=== PATIENT | male | born 1995 | race American Indian/Alaskan Native ===

== ENCOUNTER 2017-03-24 07:40 | Emergency (ER) | payer BC ==
[2017-03-24 07:48] VITALS: BMI 23.0
[2017-03-24] MEDS ORDERED: FAMOTIDINE 20 MG/50 ML IVPB 20 MG/50 ML MG IVPB ONE (08:03)
[2017-03-24] MEDS ORDERED: ONDANSETRON 4 MG/2 ML VIAL IVPUSH ONE (08:03)
[2017-03-24] MEDS ORDERED: SODIUM CHLORIDE 1,000 ML IV STA (08:03)
--- NOTE | 2017-03-24 08:03 | PDOC ---
History of Present Illness - General Chief Complaint: Pain Stated Complaint: STOMACH PAIN/VOMITING Time Seen by Provider: 03/24/17 07:53 - History of Present Illness Initial Comments: 03/24/17 08:16 The patient is a 21 year old male with no significant PMH who presents for evaluation of nausea, vomiting, and abdominal pain. The patient reports that he is visiting from [place] and began experiencing LUQ abdominal pain with associated nausea and vomiting beginning yesterday evening after arriving. He reports multiple episodes of non-bloody, non-bilious vomiting throughout the night prompting his presentation to the ED today. He denies having symptoms similar to this in the past. He denies fevers, chills, SOB, chest pain, or changes with urination or bowel movements. Past History - Past Medical History Allergies/Adverse Reactions: Allergies Allergy/AdvReac Type Severity Reaction Status Date / Time No Known Allergies Allergy Verified 03/24/17 07:47 Home Medications: Ambulatory Orders Ondansetron [Zofran Odt -] 4 mg SL TID PRN #21 od.tablet 03/24/17 COPD: No Other medical history: lactose intolerant - Suicide/Smoking/Psychosocial Hx Smoking History: Never smoked Information on smoking cessation initiated: No Hx Alcohol Use: No Drug/Substance Use Hx: No Substance Use Type: None Review of Systems - Review of Systems Comments:: 03/24/17 08:19 Constitutional: No fevers, chills, fatigue, malaise HEENT: No Rhinorrhea, nasal congestion, Cardiovascular: No chest pain, syncope, palpitations, lightheadedness Respiratory: No Cough, SOB, Hemoptysis, Gastrointestinal: Abdominal pain, nausea, vomiting. No Constipation, Diarrhea, Melena Genitourinary: No Dysuria, Frequency, Urgency, Hesitancy, Hematuria, Flank pain Musculoskeletal: No Myalgia, arthralgia Skin: No rashes, bruising, pallor Neurologic: No Headache, Dizziness, Numbness, Weakness, or Tingling Psychiatric: No Hallucinations. No SI or HI *Physical Exam - Vital Signs Last Vital Signs Temp Pulse Resp BP Pulse Ox 97.8 F 62 19 133/88 100 03/24/17 07:45 03/24/17 07:45 03/24/17 07:45 03/24/17 07:45 03/24/17 07:45 - Physical Exam Comments: 03/24/17 08:20 General Appearance: Nourished. No Apparent Distress HEENT: EOMI, [place]. No Pharyngeal Erythema, Tonsillar Exudate, Tonsillar Erythema Neck: No Cervical Lymphadenopathy Respiratory/Chest: Lungs Clear, Normal Breath Sounds. No Crackles, Rales, Rhonchi, Wheezing Cardiovascular: Regular Rhythm, Regular Rate. No Murmur, Gallops, Rubs Gastrointestinal/Abdominal: Normal Bowel Sounds, Soft. Mild LUQ tenderness to palpation. No RLQ tenderness to palpation. No Guarding, Rebound, Musculoskeletal: No CVA Tenderness Extremity: Normal Capillary Refill Integumentary: Normal Color, Dry, Warm Neurologic: Fully Oriented, Alert, Normal Mood/Affect, Normal Response, ED Treatment Course - LABORATORY CBC & Chemistry Diagram: 03/24/17 08:30 03/24/17 08:30 Medical Decision Making - Medical Decision Making 03/24/17 08:20 The patient is a 21 year old male with no significant PMH who presents for evaluation of nausea, vomiting, and abdominal pain. Differential includes but is not limited to: Gastritis, pancreatitis, appendicitis, infectious, metabolic derangement. Given the patient's physical exam of LUQ abdominal pain with associated nausea and vomiting, it is likely the patient's symptoms are due to a gastritis. We are less concerned for an appendicitis at this point given the patient's physical exam. It is also possible that his symptoms are due to an infectious etiology given his recent travel. We will obtain a cbc, cmp, lipase and treat the patient with iv fluids, zofran, pepcid here in the ED. We will continue to monitor and reassess. 03/24/17 12:02 CBC demonstrates a wbc elevation to 15.1. CMP demonstrates a t. bili elevation to 2.4. Lipase is negative. Gallbladder US is negative as read by our radiologist. The patient feels significantly improved after medications and has tolerated a PO challenge. We discussed proper return precautions with the patient including but not limited to: worsening pain, worsening vomiting, or fevers. We are comfortable discharging the patient home with PCP follow up. We discussed the results and the plan with the patient who voiced understanding and is agreeable with the plan. *DC/Admit/Observation/Transfer Diagnosis at time of Disposition: Viral gastritis - Discharge Dispostion Disposition: HOME Condition at time of disposition: Improved Admit: No - Prescriptions Prescriptions: Ondansetron [Zofran Odt -] 4 mg SL TID PRN #21 od.tablet PRN Reason: Nausea - Referrals - Patient Instructions Printed Discharge Instructions: DI for Viral Gastroenteritis -- Adult Additional Instructions: Please return to the ER if you experience concerning or worsening symptoms including worsening persistent abdominal pain, worsening vomiting or fevers. You lab results showed a white blood cells were elevated which could be due to a viral illness. Your bilirubin was also elevated to 2.4. Your ultrasound was normal. We have sent a prescription for anti-nausea medications to your pharmacy. Please follow up with your primary care provider to discuss your ER visit. - Post Discharge Activity
[2017-03-24] MEDS ORDERED: ONDANSETRON 4 MG/2 ML VIAL ONE (08:09)
--- NOTE | 2017-03-24 08:32 | PDOC ---
Attending Attestation - Resident Resident Name: AshleyTed - ED Attending Attestation I have performed the following: I have examined & evaluated the patient, The case was reviewed & discussed with the resident, I agree w/resident's findings & plan, Exceptions are as noted - HPI HPI: 03/24/17 08:32 21y M presenting with n/v and LUQ abdominal pain described as intermittent/ colicky, denies f/c, dirarhea, cp, sob. PT recently traveled from [place] yesterday for a wed, notes that since yesterday, he has vomited numerous times, also endorses some L sided abdominal pain that is worse when he is vomits. Denies any dirarhea, and hasnt had a BM since yesterday but notes that he is passing gas. No sick contacts. No recent travel beside from [place]. no testicular pain or urinary sypmtoms - Physicial Exam PE: 03/24/17 09:23 GENERAL: The patient is awake, alert, and fully oriented, Nontoxic - in no acute distress. ENT: Normal voice, Dry mucous membranes. ABDOMEN: Soft, mild L sided tenderness, normoactive bowel sounds. No guarding, no rebound. No CVA tenderness EXTREMITIES: Normal range of motion, no edema. No clubbing or cyanosis. NEUROLOGICAL: No facial assymetry, Normal speech, moving all 4 extermities spontanouesly and symetrically PSYCH: Normal mood, normal affect. SKIN: Warm, Dry, normal turgor - Medical Decision Making 03/24/17 09:26 21y M here with L sided abd pain with multiple episodes of nbnb vomiting suspect possible enteritis consider early appendicitis will give fluids/zofran labs reviewed noted for leukocytosis and left shift - consider stress response vs infectious cause will reasess the pts abdomen and consider further need for imaging. 03/24/17 12:07 pt was reassed and is feeling signfiicantly better abdomen is soft nontender on reassessment, though he still endorses some soreness in the L abdomen no rebound/guarding pt was able to tolerate oral intake suspect his leukocytis is due to the vomiting as a stress responce. consider but do not think appy bu ti discussed strict return precautions for any further abdominal pin anatoliy if it radiates to the right or he has any fevers, or persistent vomiting wlil dc pt with zofran Heart Score/ECG Review - ECG Impressions Comment:: 03/24/17 11:19 Twelve-lead EKG was performed and reviewed by me. There is normal sinus rhythm with a normal rate. Rate of 66 The axis is normal. The intervals are normal. There is normal R wave progression There are no ST or T wave abnormalities. Impression: Normal twelve-lead EKG
[2017-03-24 08:51] LABS: BASOPHIL 0.3 % (0-2.0); MCH 29.4 pg (25.7-33.7); MCHC 33.9 g/dl (32.0-35.9); MEAN CELL VOLUME 86.7 fl (80-96); MEAN PLT VOLUME 9.1 fl (7.5-11.1); NEUTROPHILS 92.2 % (42.8-82.8); PLATELET COUNT 244 K/MM3 (134-434); RDW 12.6 % (11.9-15.9); WHITE BLOOD COUNT 15.1 K/mm3 (4.0-10.0)
[2017-03-24 09:06] LABS: ANION GAP 15 (8-16); BILIRUBIN,TOTAL 2.4 mg/dL (0.2-1.0); CALCIUM 10.5 mg/dL (8.5-10.1); CO2 19 mmol/L (21-32); CREATININE 1.1 mg/dL (0.7-1.3); GLUCOSE,RANDOM 127 mg/dL (74-106); SGOT/AST 30 U/L (15-37); SGPT/ALT 30 U/L (12-78); TOT PROT 8.7 g/dl (6.4-8.2)
[2017-03-24 09:07] LABS: ALK PHOS 78 U/L (45-117)
[2017-03-24] MEDS ORDERED: KETOROLAC TROMETHAMINE 30 MG/1 ML VIAL IVPUSH ONE (09:20)
[2017-03-24] MEDS ORDERED: METOCLOPRAMIDE HCL INJECTION 10 MG/2 ML VIAL IVPUSH ONE (09:20)
[2017-03-24] MEDS ORDERED: SODIUM CHLORIDE 1,000 ML IV ONE (09:24)
[2017-03-24] MEDS ORDERED: METOCLOPRAMIDE HCL INJECTION 10 MG/2 ML VIAL ONE (09:25)
[2017-03-24] MEDS ORDERED: KETOROLAC TROMETHAMINE 30 MG/1 ML VIAL ONE (09:25)
[2017-03-24 12:36] VITALS: BP 140/70; PULSE 89; TEMP 98.1
--- NOTE | 2017-03-29 12:16 | EKG ---
Test Reason : Blood Pressure : / mmHG Vent. Rate : 065 BPM Atrial Rate : 065 BPM P-R Int : 118 ms QRS Dur : 086 ms QT Int : 420 ms P-R-T Axes : 000 062 053 degrees QTc Int : 436 ms POOR DATA QUALITY, INTERPRETATION MAY BE ADVERSELY AFFECTED NORMAL SINUS RHYTHM NORMAL ECG NO PREVIOUS ECGS AVAILABLE Confirmed by ZIGGY CR MD ([id number]) on 03/29/2017 12:15:38 PM Referred By: Confirmed By:ZIGGY CR MD
== END 2017-03-24 12:35 | disposition home or self-care (01) ==
LOC: JER 07:40
PROC: 3E033NZ Introduction of Analgesics, Hypnotics, Sedatives into Peripheral Vein, Percutaneous Approach (ICD-10-PCS; principal; 2017-03-24)
PROC: 3E033GC Introduction of Other Therapeutic Substance into Peripheral Vein, Percutaneous Approach (ICD-10-PCS; 2017-03-24)
PROC: 3E0337Z Introduction of Electrolytic and Water Balance Substance into Peripheral Vein, Percutaneous Approach (ICD-10-PCS; 2017-03-24)
DX: A08.4 Viral intestinal infection, unspecified (principal)
CPT/HCPCS: 36415; 76705-TC; 80053; 83690; 85025; 93005; 93010; 99282-25

== ENCOUNTER 2017-03-25 10:03 | Emergency (ER) | payer BC ==
[2017-03-25 10:10] VITALS: BMI 21.2
[2017-03-25] MEDS ORDERED: SODIUM CHLORIDE 1,000 ML IV STA ×2 (10:39→12:57)
[2017-03-25] MEDS ORDERED: PANTOPRAZOLE SODIUM 40 MG in SODIUM CHLORIDE 100 ML IVPB ONE (10:39)
[2017-03-25] MEDS ORDERED: ACETAMINOPHEN 1000 MG/100 ML VIAL (NON FORMULARY) IVPB ONE (10:39)
[2017-03-25] MEDS ORDERED: ONDANSETRON 4 MG/2 ML VIAL IVPUSH ONE ×2 (10:39→11:48)
[2017-03-25] MEDS ORDERED: PANTOPRAZOLE SODIUM 40 MG/100 ML BAG IVPB ONE (10:49)
[2017-03-25] MEDS ORDERED: ONDANSETRON 4 MG/2 ML VIAL ONE ×2 (10:49→11:59)
[2017-03-25] MEDS ORDERED: ACETAMINOPHEN INJECTION 100 ML IVPB ONE (10:49)
--- NOTE | 2017-03-25 10:54 | PDOC ---
History of Present Illness - General Chief Complaint: Nausea/Vomiting Stated Complaint: VOMITING Time Seen by Provider: 03/25/17 10:18 History Source: Patient Exam Limitations: No Limitations - History of Present Illness Travel History: No Initial Comments: 03/25/17 11:50 21-year-old male with no past medical history presenting to the ED with continued nausea and vomiting and generalized abdominal pain greater in the left lower quadrant. Patient was seen here yesterday for the same was discharged home after receiving fluids, antiemetics, PPIs resulting and normal labs and gallbladder ultrasound. Patient states went home with the Zofran with minimal relief and now with complaints of sharp intermittent pain to left lower quadrant with associated nausea and vomiting. Patient denies fever, chills, diarrhea, chest pain, shortness of breath, back pain or dysuria. Timing/Duration: reports: constant Quality: reports: moderate, cramping, sharpness Abdominal Pain Onset Location: reports: LLQ, periumbilical (left) Pain Radiation: reports: no radiation Activities at Onset: reports: none Aggravating Factors: improves with: Eating Alleviating Factors: worse with: None Past History - Travel Traveled outside of the country in the last 30 days: No Close contact w/someone who was outside of country & ill: No - Past Medical History Allergies/Adverse Reactions: Allergies Allergy/AdvReac Type Severity Reaction Status Date / Time lactose Allergy Verified 03/25/17 10:11 Home Medications: Ambulatory Orders Ondansetron [Zofran Odt -] 4 mg SL TID PRN #21 od.tablet 03/24/17 Metoclopramide HCl [Reglan] 10 mg PO BID PRN #6 tablet 03/25/17 COPD: No - Suicide/Smoking/Psychosocial Hx Smoking History: Never smoked Hx Alcohol Use: No Drug/Substance Use Hx: No Substance Use Type: None Patient Lives Alone: No Lives with/in: parents Review of Systems - Review of Systems Able to Perform ROS?: Yes Constitutional: No: Symptoms Reported HEENTM: No: Symptoms Reported Respiratory: No: Symptoms reported Cardiac (ROS): No: Symptoms Reported ABD/GI: Yes: Nausea, Poor Appetite, Poor Fluid Intake, Vomiting. No: Abdominal cramping : No: Symptoms Reported Musculoskeletal: No: Symptoms Reported *Physical Exam - Vital Signs Last Vital Signs Temp Pulse Resp BP Pulse Ox 98.0 F 77 20 138/61 100 03/25/17 10:06 03/25/17 10:06 03/25/17 10:06 03/25/17 10:06 03/25/17 10:06 - Physical Exam General Appearance: Yes: Nourished, Appropriately Dressed. No: Apparent Distress HEENT: positive: EOMI, TMs Normal, Pharynx Normal. negative: Pale Conjunctivae Neck: positive: Supple Respiratory/Chest: positive: Lungs Clear, Normal Breath Sounds. negative: Respiratory Distress, Accessory Muscle Use Cardiovascular: positive: Regular Rhythm, Regular Rate. negative: Murmur Gastrointestinal/Abdominal: positive: Soft, Tenderness (left lower quadrant) Musculoskeletal: negative: CVA Tenderness Extremity: positive: Normal Capillary Refill. negative: Pedal Edema Integumentary: positive: Normal Color, Warm, Moist Neurologic: positive: Motor Strength 5/5 (ambulatory) ED Treatment Course - LABORATORY CBC & Chemistry Diagram: 03/25/17 11:03 03/25/17 11:03 - RADIOLOGY Radiology Studies Ordered: Category Date Time Status ABDOMEN & PELVIS CT WITH CONTR [CT] Stat CT Scan 03/25/17 10:40 Ordered Medical Decision Making - Medical Decision Making 03/25/17 11:24 Patient complaints of continual nausea vomiting and left lower quadrant pain despite being given Zofran for discharge yesterday. Patient's ultrasound showed no acute findings yesterday and denies fever, chills or worsening symptoms. Patient states unable to tolerate water or solids. Patient on exam has left lower quadrant tenderness with no right lower quadrant tenderness. Patient ordered for labs including magnesium, IV Tylenol, Zofran, Protonix and IV fluids. Patient also ordered for T of the abdomen and pelvis with by mouth and IV contrast. 03/25/17 12:18 Laboratory Tests 03/24/17 03/25/17 03/25/17 08:30 11:03 11:03 WBC 12.0 H Hgb 14.7 Hct 43.2 Plt Count 234 Neutrophils % 79.2 Sodium 139 Potassium 3.5 Chloride 107 Carbon Dioxide 19 L Anion Gap 13 Creat Clearance w eGFR > 60 Random Glucose 107 H Calcium 9.1 Magnesium 1.9 Total Bilirubin 2.4 H 2.6 H Patient ordered for second dose of Zofran since unable to tolerate the by mouth contrast. 03/25/17 12:57 Laboratory Tests 03/25/17 12:40 Urine Ketones 2+ H Urine Nitrite Negative Urine Urobilinogen Negative Ur Leukocyte Esterase Pending 03/25/17 12:58 Pt ordered for 2nd bag of ivf. Patient states feeling much better after receiving Reglan. 03/25/17 16:[address] shows unremarkable liver, spleen, pancreas, gallbladder, adrenal glands and bilateral kidneys. Stomach partially distended with no gross thickening. There is no evidence of small bowel obstruction. Normal-appearing terminal ileum and appendix. Normal stool burden in the colon without wall thickening. Perirectal and willow-Ryan fat are clear. Is a small amount of free fluid in the lower pelvis/cul-de-sac which is of uncertain etiology. Otherwise there is no evidence of acute process in the abdomen and pelvis. Patient be discharged home with Reglan recommendations to follow bland diet and rest. Patient tolerated water/cracker. *DC/Admit/Observation/Transfer Diagnosis at time of Disposition: Viral gastritis - Discharge Dispostion Disposition: HOME Condition at time of disposition: Improved - Prescriptions Prescriptions: Metoclopramide HCl [Reglan] 10 mg PO BID PRN #6 tablet PRN Reason: Nausea And/Or Vomiting - Referrals - Patient Instructions Printed Discharge Instructions: DI for Nausea -- Adult, DI for Vomiting -- Adult Additional Instructions: At this time, I recommend following up bland diet including rice, chicken broth , bananas and apples. Please stay well-hydrated and taking Reglan as needed for nausea. If symptoms return or worsen despite above recommendations go to the nearest emergency room. - Post Discharge Activity Forms/Work/School Notes: Back to School
[2017-03-25 11:12] LABS: BASOPHIL 0.4 % (0-2.0); EOSINOPHIL 0.1 % (0-4.5); MCH 29.4 pg (25.7-33.7); MCHC 34.1 g/dl (32.0-35.9); MEAN CELL VOLUME 86.3 fl (80-96); MEAN PLT VOLUME 8.8 fl (7.5-11.1); NEUTROPHILS 79.2 % (42.8-82.8); PLATELET COUNT 234 K/MM3 (134-434); RDW 13.1 % (11.9-15.9)
[2017-03-25 11:40] LABS: ALBUMIN 4.4 g/dl (3.4-5.0); ANION GAP 13 (8-16); BILIRUBIN,TOTAL 2.6 mg/dL (0.2-1.0); CALCIUM 9.1 mg/dL (8.5-10.1); CO2 19 mmol/L (21-32); CREATININE 0.9 mg/dL (0.7-1.3); GLUCOSE,RANDOM 107 mg/dL (74-106); MAGNESIUM 1.9 mg/dL (1.8-2.4); SGOT/AST 22 U/L (15-37); SGPT/ALT 29 U/L (12-78)
[2017-03-25 11:41] LABS: ALK PHOS 62 U/L (45-117); TOT PROT 7.4 g/dl (6.4-8.2)
--- NOTE | 2017-03-25 11:47 | PDOC ---
*Physical Exam - Vital Signs Last Vital Signs Temp Pulse Resp BP Pulse Ox 98.0 F 77 20 138/61 100 03/25/17 10:06 03/25/17 10:06 03/25/17 10:06 03/25/17 10:06 03/25/17 10:06 ED Treatment Course - LABORATORY CBC & Chemistry Diagram: 03/25/17 11:03 03/25/17 11:03 - ADDITIONAL ORDERS Additional order review: 03/25/17 11:03 RBC 5.00 MCV 86.3 MCHC 34.1 RDW 13.1 MPV 8.8 Neutrophils % 79.2 Lymphocytes % 12.3 D Monocytes % 8.0 D Eosinophils % 0.1 D Basophils % 0.4 - Medications Given in the ED: ED Medications Discontinued Medications Generic Name Dose Route Start Last Admin Trade Name Freq PRN Reason Stop Dose Admin Acetaminophen 1,000 mg 03/25/17 10:39 03/25/17 10:15 Ofirmev Injection - IVPB 03/25/17 10:40 1,000 mg ONCE ONE Administration Pantoprazole Sodium 40 mg/ 100 mls @ 200 mls/hr 03/25/17 10:39 03/25/17 10:15 Sodium Chloride IVPB 03/25/17 11:08 200 mls/hr ONCE ONE Administration Sodium Chloride 1,000 mls @ 1,000 mls/hr 03/25/17 10:39 03/25/17 10:15 Normal Saline - IV 03/25/17 11:38 1,000 mls/hr ASDIR STA Administration Ondansetron HCl 4 mg 03/25/17 10:39 03/25/17 10:15 Zofran Injection IVPUSH 03/25/17 10:40 4 mg ONCE ONE Administration Medical Decision Making - Medical Decision Making 03/25/17 11:45 The patient was seen and evaluated in conjunction with LULI Maynard under my direct supervision, ancillary studies were reviewed. I independently interviewed and evaluated the patient and I agree with the plan as outlined by LULI Maynard . 03/25/17 16:57 Pt feeling better after receiving IV reglan. Pt's labs and ct results noted, case discussed with Dr. Jean of GI agree with dc plan, pt mostl likely has some type of viral syndrome with nasuea and vomiting vs some type of motility disorder with gastroparesis. Will dc home with reglan for a few days, Pt has a f /u appointment already scheduled for Monday, as pt lives in [place] and was just home for a . Pt and family understood dc instructions, and were given an opportunity to ask and have all questions answered before dc home. *DC/Admit/Observation/Transfer Diagnosis at time of Disposition: Viral gastritis - Discharge Dispostion Disposition: HOME Condition at time of disposition: Improved - Prescriptions Prescriptions: Metoclopramide HCl [Reglan] 10 mg PO BID PRN #6 tablet PRN Reason: Nausea And/Or Vomiting - Referrals - Patient Instructions Printed Discharge Instructions: DI for Nausea -- Adult, DI for Vomiting -- Adult Additional Instructions: At this time, I recommend following up bland diet including rice, chicken broth , bananas and apples. Please stay well-hydrated and taking Reglan as needed for nausea. If symptoms return or worsen despite above recommendations go to the nearest emergency room. - Post Discharge Activity Forms/Work/School Notes: Back to School
[2017-03-25] MEDS ORDERED: METOCLOPRAMIDE HCL INJECTION 10 MG/2 ML VIAL IVPUSH ONE (12:18)
[2017-03-25] MEDS ORDERED: METOCLOPRAMIDE HCL INJECTION 10 MG/2 ML VIAL ONE (12:37)
[2017-03-25 12:47] LABS: URINE APPEARANCE CLEAR; URINE BILIRUBIN NEGATIVE (NEGATIVE); URINE BLOOD NEGATIVE (NEGATIVE); URINE COLOR LTYELLOW; URINE GLUCOSE (UA) 1+ (NEGATIVE); URINE KETONE 2+ (NEGATIVE); URINE NITRITE NEGATIVE (NEGATIVE); URINE PROTEIN NEGATIVE (NEGATIVE); URINE UROBILINOGEN NEGATIVE mg/dL (0.2-1.0)
[2017-03-25 17:15] VITALS: BP 144/88; PULSE 68; TEMP 98.7
[2017-03-25 17:18] LABS: URINE LEUK ESTERASE Negative (NEGATIVE)
== END 2017-03-25 17:00 | disposition home or self-care (01) ==
LOC: JER 10:03
PROC: 3E0337Z Introduction of Electrolytic and Water Balance Substance into Peripheral Vein, Percutaneous Approach (ICD-10-PCS; principal; 2017-03-25)
PROC: 3E033GC Introduction of Other Therapeutic Substance into Peripheral Vein, Percutaneous Approach (ICD-10-PCS; 2017-03-25)
PROC: 3E033GC Introduction of Other Therapeutic Substance into Peripheral Vein, Percutaneous Approach (ICD-10-PCS; 2017-03-25)
PROC: 3E033NZ Introduction of Analgesics, Hypnotics, Sedatives into Peripheral Vein, Percutaneous Approach (ICD-10-PCS; 2017-03-25)
DX: A08.4 Viral intestinal infection, unspecified (principal); B97.89 Other viral agents as the cause of diseases classified elsewhere
CPT/HCPCS: 36415; 74177-TC; 80053; 81003; 83735; 85025; 99282-25